=== PATIENT | female | born 2000 | race Caucasian/White ===

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

== ENCOUNTER → 2020-04-29 | Outpatient (REF) | payer OTHER, MEDICAID ==
[~2020-04-29] MED LIST: BUSP15TA47 PO; CLON1TAB8 PO; ZOLO100T PO
== END ==
LOC: M LAB REF 19:26
PROVIDERS: ATTEND Physician Assistant
DX: J02.9 Acute pharyngitis, unspecified (principal)

== ENCOUNTER → 2021-03-24 | Outpatient (CLI) | payer MEDICAID | LOC: M OUTALCOH 08:07 | PROVIDERS: ATTEND Psychiatry & Neurology Psychiatry | DX: F10.10 Alcohol abuse, uncomplicated (principal); F12.10 Cannabis abuse, uncomplicated ==

== ENCOUNTER → 2021-04-15 | Outpatient (RCR) | payer MEDICAID | LOC: M OUTALCOH 04-06 14:32 | PROVIDERS: ATTEND Psychiatry & Neurology Psychiatry | DX: F10.10 Alcohol abuse, uncomplicated (principal); F12.20 Cannabis dependence, uncomplicated ==

== ENCOUNTER 2021-05-13 10:00 | Outpatient (RCR) | payer MEDICAID | END 2021-05-16 | LOC: M OUTALCOH 10:00 | PROVIDERS: ATTEND Psychiatry & Neurology Psychiatry | DX: F10.10 Alcohol abuse, uncomplicated (principal); F12.20 Cannabis dependence, uncomplicated ==

== ENCOUNTER → 2021-06-15 | Outpatient (RCR) | payer MEDICAID | LOC: M OUTALCOH 05-19 13:23 | PROVIDERS: ATTEND Psychiatry & Neurology Psychiatry | DX: F10.10 Alcohol abuse, uncomplicated (principal); F12.20 Cannabis dependence, uncomplicated ==

== ENCOUNTER 2021-07-07 10:30 | Outpatient (RCR) | payer MEDICAID | END 2021-07-16 | LOC: M OUTALCOH 10:30 | PROVIDERS: ATTEND Psychiatry & Neurology Psychiatry | DX: F10.10 Alcohol abuse, uncomplicated (principal); F12.20 Cannabis dependence, uncomplicated ==

== ENCOUNTER 2021-08-10 09:00 | Outpatient (RCR) | payer MEDICAID | END 2021-08-16 | LOC: M OUTALCOH 09:00 | PROVIDERS: ATTEND Psychiatry & Neurology Psychiatry | DX: F10.10 Alcohol abuse, uncomplicated (principal); F12.20 Cannabis dependence, uncomplicated ==

== ENCOUNTER 2021-08-17 09:00 | Outpatient (RCR) | payer MEDICAID | END 2021-09-13 | LOC: M OUTALCOH 09:00 | PROVIDERS: ATTEND Psychiatry & Neurology Psychiatry | DX: F10.10 Alcohol abuse, uncomplicated (principal); F12.20 Cannabis dependence, uncomplicated ==

== ENCOUNTER → 2021-08-19 | Outpatient (REF) | payer SELFPAY | LOC: M SFHCPLAZ 14:18 | PROVIDERS: ATTEND Family Medicine | DX: F31.9 Bipolar disorder, unspecified (principal); F41.9 Anxiety disorder, unspecified ==

== ENCOUNTER → 2022-02-20 | Outpatient (REF) | payer OTHER | LOC: M LAB REF 15:19 | PROVIDERS: ATTEND Physician Assistant Medical | DX: R50.9 Fever, unspecified (principal) ==

== ENCOUNTER → 2022-05-19 | Outpatient (CLI) | payer OTHER, MEDICAID ==
[2022-05-19 17:42] LABS: BASO % 0.4 % (0.0-1.0); EOS # 0.1 10^3/uL (0.0-0.5); EOS % 0.7 % (0.0-3.0); HEMATOCRIT 43.5 % (36.0-47.0); HEMOGLOBIN 14.2 g/dl (12.0-15.5); LYMPH # 1.9 10^3/uL (1.5-5.0); LYMPH % 26.8 % (24.0-44.0); MEAN CORPUSCULAR HEMOGLOBIN 30.1 pg (27.0-33.0); MEAN CORPUSCULAR HGB CONC 32.6 g/dl (32.0-36.5); MEAN CORPUSCULAR VOLUME 92.4 fl (80.0-96.0); MONO # 0.8 10^3/uL (0.0-0.8); MONO % 10.8 % (2.0-8.0); NEUTROPHILS # 4.4 10^3/uL (1.5-8.5); PLATELET COUNT, AUTOMATED 271 10^3/uL (150-450); RED BLOOD COUNT 4.71 10^6/uL (4.00-5.40); WHITE BLOOD COUNT 7.2 10^3/uL (4.0-10.0)
== END ==
LOC: M PLALAB 15:15
PROVIDERS: ATTEND Family Medicine
DX: R19.7 Diarrhea, unspecified (principal)

== ENCOUNTER → 2023-07-15 | Outpatient (REF) | payer OTHER, MEDICAID ==
[~2023-07-15] MED LIST changes: +ATIV1TAB7 PO; +CYCL-707 PO; +NAPR-837 PO
== END ==
LOC: M LAB REF 18:17
PROVIDERS: ATTEND Physician Assistant Medical
DX: R05.9 Cough, unspecified (principal)

== ENCOUNTER 2024-01-30 10:08 | Emergency (ER) | payer OTHER ==
[~2024-01-30] VITALS: Ht 162.6 cm; Wt 63.8 kg
[2024-01-30 11:04] LABS: BASO % 0.3 % (0.0-1.0); EOS % 0.1 % (0.0-3.0); HEMATOCRIT 38.4 % (36.0-47.0); LYMPH # 2.2 10^3/uL (1.5-5.0); LYMPH % 31.5 % (24.0-44.0); MEAN CORPUSCULAR HEMOGLOBIN 30.9 pg (27.0-33.0); MEAN CORPUSCULAR HGB CONC 33.9 g/dl (32.0-36.5); MEAN CORPUSCULAR VOLUME 91.2 fl (80.0-96.0); MONO # 0.5 10^3/uL (0.0-0.8); MONO % 6.7 % (2.0-8.0); NEUTROPHILS # 4.2 10^3/uL (1.5-8.5); NEUTROPHILS % 61.3 % (36.0-66.0); PLATELET COUNT, AUTOMATED 244 10^3/uL (150-450); RED BLOOD COUNT 4.21 10^6/uL (4.00-5.40); WHITE BLOOD COUNT 6.9 10^3/uL (4.0-10.0)
[2024-01-30 11:37] LABS: BLOOD UREA NITROGEN 7 MG/DL (9-23); CALCIUM LEVEL 9.4 MG/DL (8.5-10.1); CARBON DIOXIDE LEVEL 25 MMOL/L (20-31); CHLORIDE LEVEL 109 MMOL/L (98-107); CREATININE FOR GFR 0.46 MG/DL (0.55-1.30); GLOMERULAR FILTRATION RATE > 60.0 (>60); GLUCOSE, FASTING 93 MG/DL (60-100); POTASSIUM SERUM 3.6 MMOL/L (3.5-5.1); SODIUM LEVEL 141 MMOL/L (136-145)
[2024-01-30 11:42] VITALS: BP 125/75; TEMP 98.2; O2SAT 98
[2024-01-30 11:50] LABS: HCG, SERUM QUANTITATIVE 6793.1 MIU/ML (<4.2)
== END 2024-01-30 13:45 | disposition home or self-care (01) ==
LOC: M ED 10:08
DX: O03.9 Complete or unspecified spontaneous abortion without complication (principal); O02.0 Blighted ovum and nonhydatidiform mole; F41.9 Anxiety disorder, unspecified; Z88.1 Allergy status to other antibiotic agents

== ENCOUNTER → 2024-07-31 | Outpatient (CLI) | payer OTHER | LOC: M RAD 10:21 | PROVIDERS: ATTEND Physician Assistant | DX: S93.611A Sprain of tarsal ligament of right foot, initial encounter (principal); W18.30XA Fall on same level, unspecified, initial encounter; Y92.009 Unspecified place in unspecified non-institutional (private) residence as the place of occurrence of the external cause ==

== ENCOUNTER → 2024-09-25 | Outpatient (CLI) | payer OTHER ==
[2024-09-25 14:09] LABS: HEMATOCRIT 40.2 % (36.0-47.0); HEMOGLOBIN 13.3 g/dl (12.0-15.5); MEAN CORPUSCULAR HEMOGLOBIN 30.3 pg (27.0-33.0); MEAN CORPUSCULAR HGB CONC 33.1 g/dl (32.0-36.5); MEAN CORPUSCULAR VOLUME 91.6 fl (80.0-96.0); PLATELET COUNT, AUTOMATED 249 10^3/uL (150-450); RED BLOOD COUNT 4.39 10^6/uL (4.00-5.40); WHITE BLOOD COUNT 7.1 10^3/uL (4.0-10.0)
[2024-09-25 14:42] LABS: HIV 1&2 SCREEN NEGATIVE (NEGATIVE)
[2024-09-25 14:51] LABS: HEPATITIS C VIRUS ABY INDEX 0.03 INDEX (<0.8)
== END ==
LOC: M PLALAB 10:14
PROVIDERS: ATTEND Advanced Practice Midwife
DX: Z34.81 Encounter for supervision of other normal pregnancy, first trimester (principal)

== ENCOUNTER → 2024-10-16 | Outpatient (REF) | payer OTHER ==
[2024-10-16 18:50] LABS: Trichomonas vaginalis (AMP) NOT DETECTED (NEGATIVE)
[2024-10-16 19:14] LABS: GC DNA AMPLIFICATION NEGATIVE (NEGATIVE)
== END ==
LOC: M SFHCWAGY 16:54
PROVIDERS: ATTEND Advanced Practice Midwife
DX: Z34.81 Encounter for supervision of other normal pregnancy, first trimester (principal)

== ENCOUNTER 2024-10-23 18:46 | Emergency (ER) | payer OTHER ==
[~2024-10-23] VITALS: Ht 162.6 cm; Wt 66.3 kg
[2024-10-23 18:49] VITALS: BP 135/73; TEMP 97.3; O2SAT 97
[2024-10-23] MEDS: ALBUTEROL 90 MCG/ACT 8GM HFA INHALER INH ONE ×2 (20:12→20:24)
== END 2024-10-23 21:22 | disposition home or self-care (01) ==
LOC: M ED 18:46 → EDBD 18:46 → M ED 21:22
DX: S80.212A Abrasion, left knee, initial encounter (principal); Y92.019 Unspecified place in single-family (private) house as the place of occurrence of the external cause; Y93.9 Activity, unspecified; Y99.9 Unspecified external cause status; W19.XXXA Unspecified fall, initial encounter; J45.909 Unspecified asthma, uncomplicated; F41.9 Anxiety disorder, unspecified; F17.290 Nicotine dependence, other tobacco product, uncomplicated; Z88.1 Allergy status to other antibiotic agents

== ENCOUNTER → 2024-11-13 | Outpatient (CLI) | payer OTHER | LOC: M WHC 14:39 | PROVIDERS: ATTEND Advanced Practice Midwife | DX: Z34.82 Encounter for supervision of other normal pregnancy, second trimester (principal) ==

== ENCOUNTER → 2024-12-05 | Outpatient (CLI) | payer OTHER | LOC: M WHC 15:00 | PROVIDERS: ATTEND Advanced Practice Midwife | DX: Z34.82 Encounter for supervision of other normal pregnancy, second trimester (principal); Z3A.21 21 weeks gestation of pregnancy ==

== ENCOUNTER → 2025-03-19 | Outpatient (REF) | payer OTHER | LOC: M PLALAB 15:01 | PROVIDERS: ATTEND Nurse Practitioner Family | DX: Z34.83 Encounter for supervision of other normal pregnancy, third trimester (principal) ==

== ENCOUNTER 2025-04-18 22:56 | Inpatient (IN) | payer OTHER ==
[~2025-04-18] VITALS: Ht 162.6 cm; Wt 86.0 kg
[2025-04-18 23:12] VITALS: BP 136/86
[2025-04-19] VITALS (52 sets, daily range): BP systolic 120–168; BP diastolic 67–101
[2025-04-19] MEDS ORDERED: CARBOPROST TROMETHAMINE 250 MCG/ML AMP IM PRN (00:30)
[2025-04-19] MEDS ORDERED: METHYLERGONOVINE MALEATE 0.2 MG/ML 1 ML VIAL IM PRN (00:30)
[2025-04-19] MEDS ORDERED: TRANEXAMIC ACID INJection 1,000 MG in NS 100 ML IV PRN (00:30)
[2025-04-19 00:49] LABS: PLATELET COUNT, AUTOMATED 194 10^3/uL (150-450)
[2025-04-19] MEDS: LACTATED RINGER'S 1000 ML IV STA (00:51)
[2025-04-19 01:02] LABS: TOTAL PROTEIN,RANDOM URINE 14.2 MG/DL (0.0-14.0)
[2025-04-19 01:20] LABS: LDH LACTATE DEHYDROGENASE 190 U/L (120-246)
[2025-04-19 01:21] LABS: ALT/SGPT 20 U/L (7.0-40); AST/SGOT 18 U/L (<34); CREATININE FOR GFR 0.43 MG/DL (0.55-1.30); GLOMERULAR FILTRATION RATE > 90.0 (>60)
[2025-04-19] MEDS: BUTORPHANOL 2 MG/ML 1 ML VIAL IV ONE (01:25)
[2025-04-19 01:37] LABS: HIV 1&2 SCREEN NEGATIVE (NEGATIVE)
[2025-04-19 01:56] LABS: HEPATITIS C VIRUS ABY INDEX < 0.02 INDEX (<0.8)
[2025-04-19] MEDS: LR 1,000 ML IV SCH ×2 (04:45→17:57)
[2025-04-19] MEDS ORDERED: diphenhydrAMINE 50 MG/ML VIAL IV PRN (17:10)
[2025-04-19] MEDS ORDERED: ONDANSETRON 4MG 2ML VIAL IV PRN (17:10)
[2025-04-19] MEDS ORDERED: NALOXONE INJ 0.4 MG/1 ML VIAL IV PRN (17:10)
[2025-04-19] MEDS ORDERED: EPIDURAL/PCA KEYS XX PRN (17:10)
[2025-04-19] MEDS: OXYTOCIN DRIP 30 UNITS in IV 1 EA IV SCH (17:23)
[2025-04-19] MEDS: FENTANYL/ROPIVACAINE/NACL BAG 100 ML EPIDURAL SCH (17:26)
[2025-04-19] MEDS: LR 500 ML IV PRN (17:57)
[2025-04-19] MEDS: OXYTOCIN DRIP 30 UNITS in IV 1 EA IV PRN (23:44)
[2025-04-19] MEDS: LIDOCAINE 1% MDV 20 ML VIAL INFIL PRN (23:46)
[2025-04-20 00:05] VITALS: BP 120/89
[2025-04-20] MEDS ORDERED: RHOGAM 300MCG (1500IU) INJ IM SCH (00:10)
[2025-04-20] MEDS ORDERED: ACETAMINOPHEN 325 MG TAB PO PRN (00:10)
[2025-04-20] MEDS ORDERED: IBUPROFEN 600 MG TAB PO PRN (00:10)
[2025-04-20] MEDS ORDERED: DOCUSATE SODIUM 100 MG CAPSULE PO PRN (00:10)
[2025-04-20] MEDS ORDERED: ACETAMINOPHEN 500 MG TAB PO PRN (00:10)
[2025-04-20] MEDS ORDERED: METHYLERGONOVINE MALEATE 0.2 MG TAB PO PRN (00:10)
[2025-04-20 00:22] VITALS: BP 139/75
[2025-04-20 01:30] VITALS: BP 130/79; O2SAT 98
[2025-04-20 06:00] VITALS: BP 129/61; O2SAT 100
[2025-04-20] MEDS: PRENATAL VITAMINS CHEWABLE TABLET PO SCH (09:00)
[2025-04-20] MEDS: DIBUCAINE 1% OINTMENT 30 GM TOP PRN (09:11)
[2025-04-20] MEDS: IBUPROFEN 800 MG TAB PO PRN (17:49)
[2025-04-20 18:00] VITALS: BP 138/87; O2SAT 97
[2025-04-21 05:41] VITALS: BP 133/72; O2SAT 97
[2025-04-21] MEDS ORDERED: IBUP80TA PO (11:34)
[2025-04-21] MEDS ORDERED: ACET-683 PO (11:34)
[2025-04-22] MEDS ORDERED: MEASLES,MUMPS,RUBELLA VACCINE INJ (MMR-II) SC.IMMUN ONE (09:00)
== END 2025-04-21 15:45 | disposition home or self-care (01) | DRG 560 ==
LOC: M LDO 22:56 → M LDI 23:56 → M OBS 04-20 01:20
PROVIDERS: ADMIT Advanced Practice Midwife; ATTEND Specialist
PROC: 10E0XZZ Delivery of Products of Conception, External Approach (ICD-10-PCS; principal; 2025-04-19)
PROC: 0KQM0ZZ Repair Perineum Muscle, Open Approach (ICD-10-PCS; 2025-04-19)
PROC: 10907ZC Drainage of Amniotic Fluid, Therapeutic from Products of Conception, Via Natural or Artificial Opening (ICD-10-PCS; 2025-04-19)
DX: O14.94 Unspecified pre-eclampsia, complicating childbirth (principal); O70.1 Second degree perineal laceration during delivery; Z3A.40 40 weeks gestation of pregnancy; Z37.0 Single live birth